=== PATIENT | female | born 1975 | race Native Hawaiian/Other Pacific Islander ===

== ENCOUNTER 2021-05-25 11:26 | Outpatient (CLI) | payer BC ==
[2021-05-25 12:23] LABS: PLATELET COUNT 287 K/uL (152-353)
== END 2021-05-25 19:01 | disposition home or self-care (01) ==
LOC: LABW 11:26
PROVIDERS: ATTEND Internal Medicine
DX: R53.83 Other fatigue (principal); R63.5 Abnormal weight gain
CPT/HCPCS: 36415; 80053; 80061; 81000; 82043; 82306; 82550; 82570; 82607; 82728; 82746; 83036; 83540; 83550; 83735; 83880; 84100; 84155; 84439; 84443; 85027; 85652; 86038